=== PATIENT | female | born 1945 | race Caucasian/White ===

== ENCOUNTER 2017-10-17 12:19 | Inpatient (IN) ==
--- NOTE | 2017-10-17 13:12 | Emergency Department Note ---
Lower Extremity Injury HPI - General Chief Complaint: Extremity Injury, Lower Stated Complaint: left hip pain Time Seen by Provider: 10/17/17 12:31 Source: patient Mode of arrival: wheelchair Limitations: no limitations - History of Present Illness HPI Narrative: 72-year-old female in ED today [facility] urgent care referral due to left nondisplaced hip fracture. Patient states she felt 2 weeks ago at home in her front room due to slight dizziness and landed on her left hip on her hardwood floor. Patient lives alone and she was able to get in the standing position and continued to walk on her own accord. Patient states she has 10/10 pain when walking, and when laying still 0-10 pain. Patient states most the pain is in her groin area of her left leg. Patient again on elliptical machine and stated she felt alleviated pain after use of machine. Patient states last 3-4 days the pain has become increasingly worse. Patient broke her left hand one day before the hip injury, and this has made it more difficult to ambulate because she is unable to use a cane with her left hand. Patient has history of hypertension, thyroidism, eye problems. Patient has not had anything to eat or drink since last evening at 2130, when she took her medications. complaint: hip injury (left) Onset (ago): week(s) (2) Injury: Left: hip Type of Injury: blunt Place: home Severity: severe (with movement) Severity scale (1-10): 10 Improves with: immobilization Worsens with: weight bearing, movement Context: fall Associated symptoms: Reports: ambulatory Other symptoms: none Treatments prior to arrival: NSAIDS - Related Data Home Medications Medication Instructions Recorded Confirmed Bisoprolol/Hctz 2.5 [Ziac 2.5] 1 tab PO DAILY 10/17/17 10/17/17 Cholecalciferol (Vitamin D3) 1,000 unit PO QDAY 10/17/17 10/17/17 [Vitamin D] Levothyroxine [Synthroid] 25 mcg PO DAILY 10/17/17 10/17/17 Omeprazole [PriLOSEC] 20 mg PO QDAY 10/17/17 10/17/17 Allergies Allergy/AdvReac Type Severity Reaction Status Date / Time Ether Allergy Unknown Verified 10/17/17 12:26 hydrocodone Allergy Unknown Verified 10/17/17 12:26 tolmetin [From Tolectin] Allergy Unknown Verified 10/17/17 12:26 Review of Systems Constitutional: Denies: fever, chills, weakness Eyes: Denies: eye pain ENT ED: Denies: ear pain, throat pain, congestion Cardiovascular: Denies: chest pain, palpitations, edema, syncope Respiratory: Denies: shortness of breath, cough, wheezes Gastrointestinal: Denies: abdominal pain, nausea, vomiting, diarrhea Genitourinary: Denies: dysuria, urgency, frequency Musculoskeletal: Reports: joint pain (left joint pain patient states feels like pulled groin). Denies: back pain, joint swelling Integumentary: Denies: rash, pruritus Neurological: Reports: abnormal gait (patient uses IV pole to steady gait and not bear weight on left leg when moving.). Denies: headache, weakness, numbness Psychiatric: Denies: anxiety, depression Endocrine: Denies: fatigue Hematological/Lymphatic: Denies: easy bleeding, easy bruising Allergic/Immunologic: Denies: urticaria Past Medical History - Past Medical History Medical history: Reports: hypertension, hypothyroidism Psychiatric history: Reports: no psych history COUNTERSINKER history: Reports: non-contributory LMP comments: post menopausal - Social History smoking status: Never smoker Alcohol use: Reports: None Drug use: Reports: none Physical Exam Limitations: no limitations General appearance: alert, in no apparent distress Head: atraumatic, normocephalic, normal inspection Eye: Present: normal appearance, PERRL ENT: normal exam, normal oropharynx, mucous membranes moist, normal external ear exam Neck: Present: normal inspection, full ROM. Absent: tenderness, lymphadenopathy Chest: Present: normal inspection, symmetric chest wall rise. Absent: tenderness Respiratory: Present: normal lung sounds bilaterally. Absent: respiratory distress, wheezes Cardiovascular: Present: regular rate, normal rhythm, normal heart sounds. Absent: systolic murmur, diastolic murmur Abdominal: Present: soft, normal bowel sounds. Absent: distention, tenderness, guarding, organomegaly Extremities: Present: normal inspection, normal capillary refill. Absent: tenderness, pedal edema Hip/Pelvis: Present: ecchymosis. Absent: full ROM (left limited), tenderness, swelling, external rotation, internal rotation, shortening Upper leg: Present: normal inspection. Absent: swelling, ecchymosis, erythema Knee: Present: normal inspection, full ROM. Absent: tenderness, deformity Lower leg: Present: normal inspection. Absent: tenderness, swelling, ecchymosis , deformity Gait: observed and limited by pain, unable to bear weight Back: Present: normal inspection. Absent: tenderness, CVA tenderness (R), CVA tenderness (L) Neurological: Present: alert, oriented X3, normal gait Psychiatric: Present: normal affect, normal mood. Absent: depressed, agitated Skin: Present: warm, dry, intact, normal color. Absent: rash, cyanosis Course Vital Signs Temperature 98.7 F 10/17/17 12:20 Respiratory Rate 87 H 10/17/17 12:20 Blood Pressure 165/88 10/17/17 12:20 Pulse Oximetry (%) 99 10/17/17 12:20 Temperature 98.7 F 10/17/17 12:20 Pulse Rate 52 L 10/17/17 14:16 Respiratory Rate 11 L 10/17/17 14:42 Blood Pressure 159/86 10/17/17 14:42 Pulse Oximetry (%) 97 10/17/17 14:16 Extremity Injury, Lower - MDM Narrative Medical decision making narrative: [address] Sheldon on patient's subcapital nondisplaced left hip fracture. Dr. Sheldon will be in to do surgical repair, will contact hospitalist to begin admitting process. - Lab Data Result diagrams: 10/17/17 12:50 10/17/17 12:50 Lab Results 10/17/17 10/17/17 10/17/17 Range/Units 12:50 12:50 12:50 WBC 10.8 (4.5-11.0) K/mcL RBC 5.21 H (4.00-5.20) M/mcL Hgb 15.3 H (12.0-15.0) g/dL Hct 46.4 (36.0-48.0) % MCV 88.9 (80.0-100.0) fL MCH 29.4 (26.0-34.0) pg MCHC 33.0 (31.0-36.0) g/dL RDW 14.4 (11.5-14.5) % Plt Count 298 (140-440) K/mcL MPV 9.2 (7.4-10.4) fL Gran % 66.2 (38.0-78.0) % Lymph % (Auto) 25.6 (15.5-49.0) % [place] % (Auto) 6.4 (1.0-12.0) % Eos % (Auto) 1.2 (0.0-7.0) % Baso % (Auto) 0.6 (0.0-2.0) % Gran # 7.2 (1.8-8.0) K/mcL Lymph # (Auto) 2.8 (1.5-4.8) K/mcL [place] # (Auto) 0.7 (0.1-0.9) K/mcL Eos # (Auto) 0.1 (0.0-0.7) K/mcL Baso # (Auto) 0.1 (0.0-0.3) K/mcL PT 12.2 (11.9-14.5) sec INR 0.9 (0.9-1.1) Sodium 139 (133-145) mmol/L Potassium 3.8 (3.3-5.1) mmol/L Chloride 101 (96-108) mmol/L Carbon Dioxide 22 (22-30) mmol/L Anion Gap 16.0 (8-16) BUN 15 (8-23) mg/dl Creatinine 0.7 (0.6-1.1) mg/dl GFR Calculation 87 Glucose 92 (70-105) mg/dL Calcium 9.8 (8.6-10.4) mg/dl Total Bilirubin 0.4 (0.0-1.0) mg/dL AST 22 (0-37) U/l ALT 18 (0-40) U/l Alkaline Phosphatase 108 (39-117) U/L Total Protein 8.1 (5.9-8.4) gm/dL Albumin 4.5 (3.2-5.2) gm/dL Globulin 3.6 (2.2-3.7) gm/dL Albumin/Globulin Ratio 1.3 (1.0-2.3) Urine Color Urine Appearance Urine pH (5.0-9.0) Ur Specific [place] (1.000-1.035) Urine Protein (NEG) mg/dL Urine Glucose (UA) (NEG) mg/dL Urine Ketones (NEG) mg/dL Urine Occult Blood (<0.03) mg/dL Urine Nitrate (NEG) Urine Bilirubin (NEG) mg/dL Urine Urobilinogen (NEG) mg/dL Ur Leukocyte Esterase (NEG) /uL Urine RBC (0-1) /hpf Urine WBC (0-4) /hpf Ur Squamous Epith Cells (0-4) /hpf Amorphous Crystals (0) /hpf Urine Bacteria (0) /hpf Urine Mucus (0) /hpf Ur Culture Indicated? 10/17/17 Range/Units 13:06 WBC (4.5-11.0) K/mcL RBC (4.00-5.20) M/mcL Hgb (12.0-15.0) g/dL Hct (36.0-48.0) % MCV (80.0-100.0) fL MCH (26.0-34.0) pg MCHC (31.0-36.0) g/dL RDW (11.5-14.5) % Plt Count (140-440) K/mcL MPV (7.4-10.4) fL Gran % (38.0-78.0) % Lymph % (Auto) (15.5-49.0) % [place] % (Auto) (1.0-12.0) % Eos % (Auto) (0.0-7.0) % Baso % (Auto) (0.0-2.0) % Gran # (1.8-8.0) K/mcL Lymph # (Auto) (1.5-4.8) K/mcL [place] # (Auto) (0.1-0.9) K/mcL Eos # (Auto) (0.0-0.7) K/mcL Baso # (Auto) (0.0-0.3) K/mcL PT (11.9-14.5) sec INR (0.9-1.1) Sodium (133-145) mmol/L Potassium (3.3-5.1) mmol/L Chloride (96-108) mmol/L Carbon Dioxide (22-30) mmol/L Anion Gap (8-16) BUN (8-23) mg/dl Creatinine (0.6-1.1) mg/dl GFR Calculation Glucose (70-105) mg/dL Calcium (8.6-10.4) mg/dl Total Bilirubin (0.0-1.0) mg/dL AST (0-37) U/l ALT (0-40) U/l Alkaline Phosphatase (39-117) U/L Total Protein (5.9-8.4) gm/dL Albumin (3.2-5.2) gm/dL Globulin (2.2-3.7) gm/dL Albumin/Globulin Ratio (1.0-2.3) Urine Color Yellow Urine Appearance Clear Urine pH 5.0 (5.0-9.0) Ur Specific [place] 1.014 (1.000-1.035) Urine Protein Neg (NEG) mg/dL Urine Glucose (UA) Negative (NEG) mg/dL Urine Ketones 5/tr A (NEG) mg/dL Urine Occult Blood Neg (<0.03) mg/dL Urine Nitrate Neg (NEG) Urine Bilirubin Neg (NEG) mg/dL Urine Urobilinogen Neg (NEG) mg/dL Ur Leukocyte Esterase Neg (NEG) /uL Urine RBC 0 (0-1) /hpf Urine WBC 1 (0-4) /hpf Ur Squamous Epith Cells 1 (0-4) /hpf Amorphous Crystals Few A (0) /hpf Urine Bacteria 0 (0) /hpf Urine Mucus Few (0) /hpf Ur Culture Indicated? No - Radiology Data Radiology results reviewed: Yes I reviewed the patient's radiology results. - EKG Data EKG attestation: Yes I reviewed and interpreted this EKG. 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
[2017-10-17 13:13] LABS: Basophils # (Auto) 0.1 K/mcL (0.0-0.3); Basophils % (Auto) 0.6 % (0.0-2.0); Eosinophils # (Auto) 0.1 K/mcL (0.0-0.7); Eosinophils % (Auto) 1.2 % (0.0-7.0); Granulocytes % (Auto) 66.2 % (38.0-78.0); Lymphocytes # (Auto) 2.8 K/mcL (1.5-4.8); Lymphocytes % (Auto) 25.6 % (15.5-49.0); Mean Cell Volume 88.9 fL (80.0-100.0); Mean Corpuscular Hemoglobin 29.4 pg (26.0-34.0); Monocytes # (Auto) 0.7 K/mcL (0.1-0.9); Monocytes % (Auto) 6.4 % (1.0-12.0); Platelet Count 298 K/mcL (140-440); RBC 5.21 M/mcL (4.00-5.20); Red Cell Distribution Width 14.4 % (11.5-14.5)
[2017-10-17 13:30] LABS: ALT/SGPT 18 U/l (0-40); Albumin 4.5 gm/dL (3.2-5.2); Albumin/Globulin Ratio 1.3 (1.0-2.3); Alkaline Phosphatase 108 U/L (39-117); Blood Urea Nitrogen 15 mg/dl (8-23)
[2017-10-17 13:41] LABS: Appearance,Urine CLEAR; Bacteria,Urine 0 /hpf (0); Bilirubin,Urine NEG (NEG); Color,Urine YELLOW; Glucose,Urine (UA) NEGATIVE (NEG); Leukocyte Esterase,Urine NEG /uL (NEG); Mucus,Urine FEW /hpf (0); Protein,Urine NEG (NEG); Specific Gravity,Urine 1.014 (1.000-1.035); Urine Amorphous Crystals FEW /hpf (0); Urine Blood NEG mg/dL (<0.03); Urine RBC 0 /hpf (0-1); Urine Squamous Epithelial Cell 1 /hpf (0-4); Urine WBC 1 /hpf (0-4); Urobilinogen,Urine NEG (NEG)
--- NOTE | 2017-10-17 14:09 | XRay Report ---
CLINICAL INFORMATION: Trauma COMPARISON: None. FINDINGS: The heart is mildly enlarged. The mediastinum and pulmonary vessels are unremarkable. The lungs are clear. There are no effusions. The bones and soft tissues are within normal limits. IMPRESSION: Mild cardiomegaly - no acute disease or posttraumatic change. Interpreted and Authenticated by: Sterling Shaver 10/17/17
--- NOTE | 2017-10-17 14:50 | XRay Report ---
CLINICAL INFORMATION: Trauma COMPARISON: None. FINDINGS: Acute subcapital fracture left hip is appreciated. The femoral head is impacted and displaced laterally less than 1 cm. No other osseous abnormalities. Both hips are normal in width alignment without arthritic change. SI joints show mild degeneration. IMPRESSION: Mildly impacted, minimally displaced acute subcapital fracture - left hip Interpreted and Authenticated by: Sterling Shaver 10/17/17
[2017-10-17] MEDS ORDERED: ONDANSETRON 4 MG/2 ML VIAL IV PRN ×2 (15:39→18:53)
[2017-10-17] MEDS ORDERED: BISACODYL 10 MG SUPP.RECT PR PRN ×2 (15:39→18:53)
[2017-10-17] MEDS ORDERED: ACETAMINOPHEN 325 MG TABLET PO PRN ×2 (15:39→18:53)
--- NOTE | 2017-10-17 16:00 | History and Physical Report ---
DATE OF ADMISSION: 10/17/2017 PRIMARY CARE PROVIDER: Dr. Jones. CHIEF COMPLAINT: Left hip pain. HISTORY OF PRESENT ILLNESS: A 72-year-old female who reports falling about 2 weeks ago. She got up, felt dizzy, fell on her left hip and had pain. She thought she pulled a muscle. She was able to bear weight, although painfully. Again, she has been walking on it for a couple of weeks. A week ago she tripped and hurt her wrist. She went in to urgent care and had an x-ray. They could not see anything definitive. She was told to follow up with primary care within a week. She could not get in for a couple weeks. After about a week, her wrist continued to bother her and her left hip was bothering her more, so she went in to the ER. She was found to have a left hip fracture. She denies any numbness or tingling in that leg. No chest pain or shortness of breath. Dr. Sheldon was contacted from the ER who will perform surgery. REVIEW OF SYSTEMS: Positive for left hip pain and left wrist pain. Negative for headache, fever, chills, nausea, vomiting, chest pain, coughing, wheezing, shortness of breath, stomach pain, diarrhea, constipation. The remainder of a ten-point review of system is negative. PAST MEDICAL HISTORY: Hypertension, hypothyroidism, GERD. PAST SURGICAL HISTORY: Cholecystectomy, eye surgery for cataracts, tonsillectomy, hysterectomy. FAMILY HISTORY: Mother had heart disease. She did not know her father's medical history. SOCIAL HISTORY: The patient denies tobacco or alcohol. Ambulates independently, lives at home by herself. ALLERGIES: 1. ETHER. 2. HYDROCODONE. 3. TOLMETIN. HOME MEDICATIONS: 1. Bisoprolol. 2. Hydrochlorothiazide tablet. 3. Vitamin D3. 4. Levothyroxine. 5. Prilosec. PHYSICAL EXAMINATION: VITAL SIGNS: Pulse 55, respirations 19, blood pressure 132/110, oxygen 97%. GENERAL: The patient is alert and awake, in no acute distress. HEENT: Normocephalic, atraumatic. Extraocular movements intact. Pupils equal and reactive to light. CARDIOVASCULAR: Regular rhythm. No murmurs, rubs, or gallops. PULMONARY: Clear to auscultation bilaterally. No wheeze, rhonchi or rales. ABDOMEN: Soft, nontender, nondistended, positive bowel sounds x4. EXTREMITIES: No clubbing, cyanosis or edema. NEUROLOGIC: Cranial nerves II-XII are grossly intact. Sensations are intact bilateral lower. Symmetrical director internal communications strength to the fingers that she is able to flex. Unable to assess lower extremity strength given the fracture on the left. SKIN: Warm and dry. LABORATORY DATA: WBC is 10, hemoglobin 15. INR 0.9. Sodium 139, BUN 15, creatinine 0.7. Imaging shows a left hip fracture. ASSESSMENT: 1. Left hip fracture status post ground-level fall. 2. Hypertension. 3. Hypothyroidism. 4. GERD. PLAN: The patient monitored in med/surg with n.p.o. at this time. Dr. Sheldon for ORIF. DVT prophylaxis, SCDs postop per Ortho. Continue home blood pressure and thyroid medications. PT, OT, medical case worker for assistance. HARRY:brian Job ID: [id number] Doc ID: [id number] Fernando Maciel DO
[2017-10-17] MEDS ORDERED: KETAMINE 100 MG/ML ML IV ONE (16:35)
[2017-10-17] MEDS ORDERED: DEXAMETHASONE 10 MG/ML VIAL IV ONE (16:35)
[2017-10-17] MEDS ORDERED: ONDANSETRON 4 MG/2 ML VIAL IV ONE (16:35)
[2017-10-17] MEDS ORDERED: ePHEDrine 50 MG/ML AMPUL IV ONE (16:35)
[2017-10-17] MEDS ORDERED: LIDOCAINE HCL/PF 100 MG/5 ML SYRINGE IV ONE (16:35)
[2017-10-17] MEDS ORDERED: PHENYLEPHRINE 10 MG/ML VIAL IV ONE (16:35)
[2017-10-17] MEDS ORDERED: MIDAZOLAM 2 MG/2 ML VIAL IV ONE (16:35)
[2017-10-17] MEDS ORDERED: PROPOFOL 200 MG/20 ML VIAL IV ONE (16:35)
[2017-10-17] MEDS ORDERED: GLYCOPYRROLATE 0.2 MG/ML VIAL IV ONE (16:35)
--- NOTE | 2017-10-17 16:47 | Consultation ---
DATE OF CONSULTATION: 10/17/2017 REASON FOR CONSULTATION: Left femoral neck fracture consulted by [facility] ER provider HISTORY OF PRESENT ILLNESS: The patient is a 72-year-old female who resides by herself who fell 11 days ago onto her left side. She had pain in the groin region at that time. However, was able to ambulate but pain worsened over the course of the 11 days to the point where she is unable to walk other than with a walker with minimal weight. She reports that she felt dizzy at the time resulting in the fall. She feels this was from a medication she was taking over the counter. She has stopped this since with no recurrent episodes. PAST MEDICAL HISTORY: Significant for hypertension, hyperthyroidism and reflux. PAST SURGICAL HISTORY: Cholecystectomy, cataract surgery, tonsillectomy, hysterectomy. ALLERGIES: 1. ETHER. 2. HYDROCODONE which causes nausea. 3. TOLMETIN. FAMILY HISTORY: Significant for heart disease; however, no history of coagulopathy. SOCIAL HISTORY: She resides by herself. Denies any tobacco or alcohol use. MEDICATIONS: 1. Hydrochlorothiazide. 2. Vitamin D. 3. Levothyroxine. 4. Prilosec. 5. Bisoprolol. REVIEW OF SYSTEMS: Significant for wrist and left hip pain, otherwise denies any chest pain or shortness of breath. No change in vision. No episodes of repeat dizziness as initially noted. No ringing in the ears. No nausea, vomiting, diarrhea, or constipation. No abnormal abdominal pain. PHYSICAL EXAMINATION: GENERAL: The patient is a well-developed, well-nourished, alert and oriented, appropriate female in nonacute distress, resting in her bed. EXTREMITIES: Examination of her left lower extremity reveals that she has a slightly shortened limb compared to the contralateral side. However, her skin is intact. She has ecchymosis about her posterior hip. Pain with any motion which is primarily deferred at the hip secondary to known fracture. She is neurovascularly intact distally. DIAGNOSTIC STUDIES: She has an x-ray of her pelvis and left hip which demonstrates a valgus impacted subcapital femoral neck fracture. She had a CT prior demonstrating the same which demonstrates displacement of the fracture as well. Her INR is 0.9. Hemoglobin is 15 and normal white count. Her serum creatinine is 0.7. ASSESSMENT AND PLAN: A 72-year-old female with a left femoral neck fracture that is displaced. I discussed the diagnosis with her as well as treatment options, recommendation for operative treatment with hemiarthroplasty being an option. I discussed the postoperative course of this as well as the goal of surgery would be to improve her pain as well as ambulatory. She understands. I discussed the risks of the surgery include risk of anesthesia, pulmonary and cardiac risks, risk of blood clots, infections, bleeding, hip dislocations. She is well aware and she wished to proceed in this fashion. DLW:brian Job ID: [id number] Doc ID: [id number] Kinjal Sheldon MD MTDD
[2017-10-17] MEDS ORDERED: METHOCARBAMOL 1,000 MG/10 ML VIAL IV PRN (18:41)
[2017-10-17] MEDS ORDERED: FLUMAZENIL 0.1 MG/ML ML IV PRN (18:41)
[2017-10-17] MEDS ORDERED: IPRATROPIUM/ALBUTEROL 3 ML AMPUL.NEB NEB PRN (18:41)
[2017-10-17] MEDS ORDERED: LACTATED RINGERS 250 ML IV PRN (18:41)
[2017-10-17] MEDS ORDERED: NALOXONE HCL 0.4 MG/ML VIAL IV PRN (18:41)
[2017-10-17] MEDS ORDERED: fentaNYL 100 MCG/2 ML VIAL IV PRN (18:41)
[2017-10-17] MEDS ORDERED: BENZOCAINE/MENTHOL 1 LOZENGE PO PRN ×2 (18:41→18:53)
[2017-10-17] MEDS ORDERED: ACETAMINOPHEN 1,000 MG/100 ML BOTTLE IV ONE (18:41)
[2017-10-17] MEDS ORDERED: MEPERIDINE 25 MG/ML SYRINGE IV PRN (18:41)
[2017-10-17] MEDS ORDERED: LACTATED RINGERS 1,000 ML IV SCH (18:45)
[2017-10-17] MEDS ORDERED: POLYETHYLENE GLYCOL 3350 17 GM PACKET PO PRN (18:53)
[2017-10-17] MEDS ORDERED: MAGNESIUM HYDROXIDE 30 ML ORAL.SUSP PO PRN (18:53)
[2017-10-17] MEDS ORDERED: FLEETS ADULT ENEMA PR PRN (18:53)
--- NOTE | 2017-10-17 19:06 | Internal Med Progress Note ---
Medical - PN: Subj Patient information: Note initiated : 10/17/17 at 7:05 pm Service Date, if different from initiated Date: [] Patient: Libertad Varela 72 y/o F admitted on 10/17/17 for left hip pain. Chief Complaint: [left hip FX] - Constitutional Vitals: Vital Signs Temp Pulse Resp BP Pulse Ox 97.3 F 66 15 89/53 98 10/17/17 18:55 10/17/17 18:55 10/17/17 18:55 10/17/17 18:55 10/17/17 18:55 Period Temp Pulse Resp BP Sys/Weldon Pulse Ox Last 24 Hr 97.3 F-98.7 F 50-89 9-20 89-165/53-110 97-100 Intake and Output 10/17/17 10/17/17 10/17/17 05:59 13:59 21:59 Intake Total 1600 / 1600 Output Total 200 / 200 Balance 1400 / 1400 Weight 168 lb 164 lb 9 oz Patient Weight 10/18/17 05:59 Weight 164 lb 9 oz Intake & Output: Intake & Output 10/17/17 10/17/17 10/17/17 05:59 13:59 21:59 Intake Total 1600 / 1600 Output Total 200 / 200 Balance 1400 / 1400 Weight 168 lb 164 lb 9 oz Intake: IV - Manual Only 1600 / 1600 Output: Estimated Blood Loss 200 / 200 Other: # Voids 1 Medical - PN: Obj Da - Labs CBC & Chem 7: 10/17/17 12:50 10/17/17 12:50 Labs: Abnormal Lab Results 10/17/17 10/17/17 13:06 12:50 RBC 5.21 H Hgb 15.3 H Urine Ketones 5/tr A Amorphous Crystals Few A Meds: Medications Acetaminophen (Tylenol) 650 mg PO Q6HP PRN PRN Reason: PAIN/FEVER > 101 Acetaminophen (Tylenol) 650 mg PO Q6HP PRN PRN Reason: PAIN/FEVER > 101 Albuterol/Ipratropium (Duoneb) 3 ml NEB ONCE PRN PRN Reason: Wheezing Stop: 10/17/17 20:41 Bisacodyl (Dulcolax) 10 mg MA Q2-3DAYS PRN PRN Reason: Constipation Bisacodyl (Dulcolax) 10 mg MA Q2-3DAYS PRN PRN Reason: Constipation Bisoprolol Fumarate (Zebeta) 10 mg PO DAILY [facility] Cefazolin Sodium (Ancef) 2 gm IV Q8H LEATHA Stop: 10/18/17 03:01 Docusate Sodium (Colace) 100 mg PO BID [facility] Docusate Sodium (Colace) 100 mg PO BID [facility] Enoxaparin Sodium (Lovenox) 40 mg SQ DAILY [facility] Fentanyl (Sublimaze) 25 mcg IV Q2M PRN PRN Reason: Pain Stop: 10/17/17 20:41 Flumazenil (Romazicon) 0.1 mg IV Q2MIN PRN PRN Reason: BENZODIAZEPINE REVERSAL Stop: 10/17/17 20:42 Hydrochlorothiazide (Oretic) 6.25 mg PO DAILY [facility] Lactated Ringer's (Lactated Ringers) 250 mls @ 0 mls/hr IV PRN PRN PRN Reason: Hypovolemia Stop: 10/17/17 20:41 Lactated Ringer's (Lactated Ringers) 1,000 mls @ 20 mls/hr IV .Q24H LEATHA Stop: 10/17/17 20:41 Acetaminophen (Ofirmev) 1,000 mg in 100 mls @ 200 mls/hr IV ONCE ONE Stop: 10/17/17 19:10 Levothyroxine Sodium (Synthroid) 25 mcg PO ACB [facility] Magnesium Hydroxide (Milk Of Magnesia) 30 ml PO BIDP PRN PRN Reason: Constipation Meperidine HCl (Demerol) 12.5 mg IV Q5M PRN PRN Reason: Shivering Stop: 10/17/17 20:42 Methocarbamol (Robaxin) 750 mg IV ONCE PRN PRN Reason: Muscle Spasm Stop: 10/17/17 20:42 Morphine Sulfate (Morphine) 0 mg IV Q1HP PRN PRN Reason: PAIN LEVEL > 6 Naloxone HCl (Narcan) 0.1 mg IV Q2MIN PRN PRN Reason: Opiate Reversal Stop: 10/17/17 20:41 Omeprazole (Prilosec) 20 mg PO ACB [facility] Ondansetron HCl (Zofran) 4 mg IV Q6HP PRN PRN Reason: Nausea And Vomiting Ondansetron HCl (Zofran) 4 mg IV Q4HP PRN PRN Reason: Nausea And Vomiting Polyethylene Glycol (Miralax) 17 gm PO DAILYP PRN PRN Reason: Constipation Senna (Senokot) 2 tab PO HS LEATHA Sodium Biphosphate/Sodium Phosphate (Fleets Adult) 1 dose MA Q3-4DAYS PRN PRN Reason: Constipation Sodium Chloride (Saline Flush) 10 ml IV Q8 LEAT[facility] Throat Lozenges (Cepacol) 1 lozenge PO PRN PRN PRN Reason: Sore Throat Stop: 10/17/17 20:42 Throat Lozenges (Cepacol) 1 lozenge PO PRN PRN PRN Reason: Sore Throat Medical - PN: A/P - Time Spent With Patient Total time spent is greater than 50% in coordination of care (as documented) at patient's floor/unit and/or counseling patient: - Narrative A/P Narrative: A: *Left hip Fx: *HTN *Hypothyroid P: -Ortho following -pain control -pt/ot -CM -ppx: scd, post-op per ortho / home ppi
--- NOTE | 2017-10-17 19:21 | Orthopedic Procedure Note ---
Date of procedure: Note initiated : 10/17/17 at 7:18 pm Service Date, if different from initiated Date: [10/17/2017] Pre-op diagnosis: left hip fracture Post-op diagnosis: same Procedure: left hip dexter-arthroplasty Findings: displaced femoral neck fracture Grafts/Implants: actis duofix hip prostesis cementless size 5, +0 mm tapered spacer, 45mm fracture head hip ball Anesthesia: GETA Surgeon: Kinjal Sheldon [employer] Agent: Micky Lozada Estimated blood loss: 200 Pathology: none sent Condition: stable Disposition: PACU
[2017-10-17] MEDS ORDERED: TRANEXAMIC ACID 1,000 MG/10 ML VIAL IV ONE (19:33)
[2017-10-17] MEDS: SENNOSIDES 1 TABLET PO SCH (22:20)
[2017-10-17] MEDS: DOCUSATE SODIUM 100 MG CAPSULE PO SCH ×2 (22:20)
[2017-10-17] MEDS: oxyCODONE/APAP 5/325MG TABLET PO PRN (23:30)
[2017-10-17] MEDS: 0.9 % SODIUM CHLORIDE 10 ML SYRINGE IV SCH (23:37)
[2017-10-18] MEDS: ceFAZolin 1 GM VIAL IV SCH ×2 (01:05→08:41)
[2017-10-18] MEDS: ACETAMINOPHEN 1,000 MG/100 ML BOTTLE IV SCH ×4 (02:49→22:19)
[2017-10-18] MEDS: oxyCODONE/APAP 5/325MG TABLET PO PRN (04:10)
[2017-10-18] MEDS: 0.9 % SODIUM CHLORIDE 10 ML SYRINGE IV SCH ×3 (05:45→22:19)
--- NOTE | 2017-10-18 06:34 | XRay Report ---
CLINICAL INFORMATION: Left subcapital fracture COMPARISON: Preoperative x-ray 2017 1434 hours FINDINGS: Left hemiarthroplasty component is anatomically aligned. No osseous abnormality. Right hip is normal in width and alignment without arthritic change. Mild degenerative change seen in the SI joints. Soft tissue swelling over the surgical site. IMPRESSION: Negative Interpreted and Authenticated by: Sterling Shaver 10/18/17
[2017-10-18] MEDS: LEVOTHYROXINE 25 MCG TABLET PO SCH (07:00)
[2017-10-18] MEDS: oxyCODONE HCL 5 MG TABLET PO PRN ×5 (07:00→21:40)
[2017-10-18] MEDS: OMEPRAZOLE 20 MG CAPSULE PO SCH (07:00)
--- NOTE | 2017-10-18 07:48 | Emergency Department Note ---
ED Note Addendum Note Addendum: I discussed this case with the mid-level provider and agree with the assessment and plan.
--- NOTE | 2017-10-18 08:01 | Internal Med Progress Note ---
Medical - PN: Subj Patient information: Note initiated : 10/18/17 at 7:59 am Service Date, if different from initiated Date: [] Patient: Libertad Varela 72 y/o F admitted on 10/17/17 for left hip pain. Chief Complaint: [] Interval history: hip pain after ambulating, otherwise relatively controlled. Review of Systems: denies headache/fever/chills/nausea/vomiting/chest or abdominal pain/cough/ dyspnea/diarrhea. Otherwise see above. - Constitutional Vitals: Vital Signs Temp Pulse Resp BP Pulse Ox 98.6 F 89 18 119/74 98 10/18/17 07:43 10/18/17 03:53 10/18/17 07:43 10/18/17 07:43 10/18/17 07:43 Period Temp Pulse Resp BP Sys/Weldon Pulse Ox Last 24 Hr 97.0 F-98.7 F 50-90 9-24 89-165/53-110 92-100 Intake and Output 10/17/17 10/18/17 10/18/17 21:59 05:59 13:59 Intake Total 1850 / 1850 Output Total 200 / 200 Balance 1650 / 1650 Weight 168 lb 3.2 oz Intake & Output: Intake & Output 10/17/17 10/18/17 10/18/17 21:59 05:59 13:59 Intake Total 1850 / 1850 Output Total 200 / 200 Balance 1650 / 1650 Weight 168 lb 3.2 oz Intake: IV 100 / 100 IV - Manual Only 1750 / 1750 Output: Estimated Blood Loss 200 / 200 Other: Urine Appearance Straight Clear Urine Color Straight Pale # Voids 1 1 Exam: General: Alert, Awake, No acute Distress HEENT: EOMI, CV: RRR, No murmurs Pulm: Clear b/l, no wheezing/rhonchi/rales Abd: soft, nontender, +BS x4 Ext: no clubbing/cyanosis/edema Neuro: Alert, no focal deficits, moves all extremities Skin: warm/dry Medical - PN: Obj Da - Labs CBC & Chem 7: 10/18/17 06:51 10/17/17 12:50 Labs: Abnormal Lab Results 10/17/17 10/17/17 13:06 12:50 RBC 5.21 H Hgb 15.3 H Urine Ketones 5/tr A Amorphous Crystals Few A Meds: Medications Bisacodyl (Dulcolax) 10 mg KS Q2-3DAYS PRN PRN Reason: Constipation Bisacodyl (Dulcolax) 10 mg KS Q2-3DAYS PRN PRN Reason: Constipation Bisoprolol Fumarate (Zebeta) 10 mg PO DAILY [facility] Cefazolin Sodium (Ancef) 2 gm IV Q8H [facility] Stop: 10/18/17 08:01 Last Admin: 10/18/17 01:05 Dose: 2 gm Docusate Sodium (Colace) 100 mg PO BID [facility] Last Admin: 10/17/17 22:20 Dose: Not Given Docusate Sodium (Colace) 100 mg PO BID [facility] Last Admin: 10/17/17 22:20 Dose: Not Given Enoxaparin Sodium (Lovenox) 40 mg SQ DAILY [facility] Hydrochlorothiazide (Oretic) 6.25 mg PO DAILY [facility] Acetaminophen (Ofirmev) 1,000 mg in 100 mls @ 200 mls/hr IV Q8 [facility] Last Admin: 10/18/17 05:44 Dose: Not Given Levothyroxine Sodium (Synthroid) 25 mcg PO ACB [facility] Last Admin: 10/18/17 07:00 Dose: 25 mcg Magnesium Hydroxide (Milk Of Magnesia) 30 ml PO BIDP PRN PRN Reason: Constipation Morphine Sulfate (Morphine) 0 mg IV Q1HP PRN PRN Reason: PAIN LEVEL > 6 Last Admin: 10/18/17 00:51 Dose: 2 mg Omeprazole (Prilosec) 20 mg PO ACB [facility] Last Admin: 10/18/17 07:00 Dose: 20 mg Ondansetron HCl (Zofran) 4 mg IV Q6HP PRN PRN Reason: Nausea And Vomiting Last Admin: 10/17/17 23:35 Dose: 4 mg Ondansetron HCl (Zofran) 4 mg IV Q4HP PRN PRN Reason: Nausea And Vomiting Oxycodone HCl (Roxicodone) 5 - 10 mg PO Q4-6HP PRN PRN Reason: Pain Last Admin: 10/18/17 07:00 Dose: 5 mg Polyethylene Glycol (Miralax) 17 gm PO DAILYP PRN PRN Reason: Constipation Senna (Senokot) 2 tab PO [facility] Last Admin: 10/17/17 22:20 Dose: Not Given Sodium Biphosphate/Sodium Phosphate (Fleets Adult) 1 dose KS Q3-4DAYS PRN PRN Reason: Constipation Sodium Chloride (Saline Flush) 10 ml IV Q8 [facility] Last Admin: 10/18/17 05:45 Dose: Not Given Throat Lozenges (Cepacol) 1 lozenge PO PRN PRN PRN Reason: Sore Throat Last Admin: 10/18/17 01:05 Dose: 1 lozenge Medical - PN: A/P - Time Spent With Patient Total time spent is greater than 50% in coordination of care (as documented) at patient's floor/unit and/or counseling patient: - Narrative A/P Narrative: A: *Left hip Fx: s/p ORIF (10/17) *HTN *Hypothyroid P: -Ortho following -pain control -pt/ot, CM for placement -ppx: scd, post-op per ortho lovenox / home ppi
[2017-10-18] MEDS: ENOXAPARIN 40 MG/0.4 ML SYRINGE SQ SCH (08:41)
[2017-10-18] MEDS: DOCUSATE SODIUM 100 MG CAPSULE PO SCH ×4 (08:41→20:48)
[2017-10-18] MEDS: HYDROCHLOROTHIAZIDE 25 MG TABLET PO SCH (08:41)
[2017-10-18] MEDS: BISOPROLOL 5 MG TABLET PO SCH (08:42)
[2017-10-18] MEDS ORDERED: BISOPROLOL/HCTZ 2.5 1 TAB TABLET PO SCH (09:00)
--- NOTE | 2017-10-18 09:09 | Operative Note ---
DATE OF OPERATION: 10/17/2017 PREOPERATIVE DIAGNOSIS: Left displaced femoral neck fracture. POSTOPERATIVE DIAGNOSIS: Left displaced femoral neck fracture. PROCEDURE PERFORMED: Left hip dexter-arthroplasty. SURGEON: Kinjal Sheldon M.D. BILINGUAL ACCOUNT MANAGER: Micky Lozada PA-C. ANESTHESIA: [facility] Anesthesia, general, spinal IV FLUIDS: 1300 mL lactated Ringer's. IV ANTIBIOTICS: 2 grams Ancef. ESTIMATED BLOOD LOSS: 200 mL. IMPLANTS: DePuy Actis Duofix hip prosthesis cementless size 5 with a collar and a 45 mm fracture head hip ball with a +0 mm taper. Standard off-set neck. PATHOLOGY/LAB: None. OPERATIVE FINDINGS: A displaced femoral neck fracture at the subcapital region. INTRAOPERATIVE COMPLICATIONS: None apparent. TOURNIQUET TIME: Not applicable. INDICATION FOR PROCEDURE: The patient is a 72-year-old female who has a displaced left femoral neck fracture that occurred over a week ago and has become nonambulatory and increasing in pain. Discussed treatment options with her to include operative versus nonoperative with recommendation for operative treatment to allow her to be immediate weightbearing and mobilization. I discussed the risks of surgery, and she wished to proceed in this fashion. DESCRIPTION OF PROCEDURE: The patient was prepped for surgery. The site was verified and marked with the patient's input and was taken back to the operating room where she underwent anesthesia. She was given 2 grams Ancef as well as 1000 mg of tranexamic acid. She was placed in the lateral decubitus position with the left side up and supported with anterior and posterior bolsters. Her upper extremity was adequately padded. Her left lower extremity was then prepped and draped in the usual sterile fashion utilizing ChloraPrep. Surgical timeout was performed to verify patient identity, correct procedure being performed, correct extremity being operated on, and implants being used. Everyone was in agreement. Approximately a 10 to 12 cm incision was made over the posterior one-third of the greater trochanter and skin was sharply incised. Electrocautery was utilized to obtain hemostasis and dissect down to the tensor fascia roxanne. This was incised with a clean 15 blade along the mid to posterior aspect of it, exposing the trochanteric bursa. This bursa was incised. The muscle was split in line with the tensor fascia roxanne fibers, exposing the greater trochanter, as well as the external rotators. Electrocautery was utilized to peel off the soft tissue over the external rotators. The piriformis was identified and tagged with an Ethibond suture. A self-retaining retractor had been placed at this time. The external rotators were released off the femoral neck exposing the capsule. Capsulotomy was made in line with the femoral neck exposing the fracture itself. The inferior edges of the capsule were tagged with Ethibond suture. At this point, we measured 15 mm up from the lesser tuberosity and made our femoral neck cut with oscillating saw. This was excised. The femoral head was removed and was measured to be 45. Utilizing a 45 mm sizer into the acetabulum itself, it appeared to have good overall fit. I did excise a small portion of the ligamentum teres at the base as well. At this point, the wound was copiously irrigated with irrisept. The retractor was placed to expose the femoral shaft. Utilizing the icebox man to open up the femoral canal and then broached up to a size 5. This had a good fit with good stability demonstrated by resisted rotation of the femur. Trialed with a standard neck as well as 0 mm of offset. The hip proved to be stable as well as leg lengths were near anatomic to the contralateral side. We did trial a +5. However, this was too tight and did not allow for full extension. At this point, removed the trials and copiously irrigated the wound. Hemostasis had been obtained as well. We irrigated with Irrisept and allowed to sit in the joint for over a minute. At this point, I placed a femoral stem with a collar down to the calcar region. Again, with good fit overall. We placed our femoral ball and reduced the joint. At this point again, assessed for stability and leg legs. It was stable and leg felt to be different by a millimeter. At this point, we copiously irrigated the wound again, closed the posterior capsule with 0 Ethibond suture. Repaired the piriformis to the greater trochanter in a soft tissue manner, did not drill tunnels to the greater trochanter. The wound was again copiously irrigated. An 0 Vicryl was utilized to close the tensor fascia roxanne itself in interrupted fashion and ran it more proximally. We closed the deep fat layer with 0 Vicryl and then the subcutaneous tissue with 3-0 Vicryl and closed the skin with 3-0 nylons and then a dry dressing was placed. The patient woke from anesthesia. We placed her in a hip abduction pillow. She was transferred to PACU in stable condition. PLAN: The patient will be admitted back to the floor. She is to weightbear as tolerated with posterior hip precautions. DLW:brian Job ID: [id number] Doc ID: [id number] Kinjal GODOY
--- NOTE | 2017-10-18 19:29 | Orthopedic Progress Note ---
Subjective Patient information: Note initiated : 10/18/17 at 7:26 pm Service Date, if different from initiated Date: [] Patient: Libertad Varela 72 y/o F admitted on 10/17/17 for Left Hip Pain/Left Hip Fracture. Chief Complaint: [] Principal diagnosis: Left hip fracture Interval history: POD 1 s/p Left hip dexter arthroplasty. Overall doing well and did ambulate with walker to bathroom last night. Is painful but controlled. No new issues otherwise. Objective Vital signs: Vital Signs Temp Pulse Resp BP BP Pulse Ox 10/18/17 16:00 98.9 F 18 96/58 96 10/18/17 12:14 96.7 F L 16 119/78 95 10/18/17 07:43 98.6 F 18 119/74 98 10/18/17 03:53 97.3 F 89 18 99/63 92 10/17/17 22:45 97.3 F 76 16 137/70 99 10/17/17 21:45 69 116/69 96 10/17/17 21:15 59 L 115/70 98 10/17/17 20:45 57 L 122/73 100 10/17/17 20:30 54 L 118/72 99 10/17/17 20:15 54 L 121/67 99 10/17/17 20:01 97.8 F 61 24 H 110/64 100 10/17/17 19:45 97.7 F 69 20 119/68 100 10/17/17 19:35 97.2 F 61 17 111/62 100 Intake and Output 10/18/17 10/18/17 10/18/17 05:59 13:59 21:59 Intake Total 100 / 100 120 / 120 300 / 300 Balance 100 / 100 120 / 120 300 / 300 Intake: IV 100 / 100 100 / 100 Oral 120 / 120 200 / 200 Other: Meal Breakfast Percent of Meal Consumed 100% # Voids 1 1 1 Weight 168 lb 3.2 oz Patient Weight 10/19/17 05:59 Weight 168 lb 3.2 oz Intake & Output: Intake & Output 10/18/17 10/18/17 10/18/17 05:59 13:59 21:59 Intake Total 100 / 100 120 / 120 300 / 300 Balance 100 / 100 120 / 120 300 / 300 Weight 168 lb 3.2 oz Intake: IV 100 / 100 100 / 100 Oral 120 / 120 200 / 200 Other: Meal Breakfast Percent of Meal Consumed 100% # Voids 1 1 1 Incision: Yes clean and dry Incision clean and dry: Yes Dressing: Yes clean, Yes dry Weight bearing status: full Range of motion: hip precauations Additional Comments: sensation intact throughout lower extremity with warm well perfused foot - Labs CBC & BMP: 10/18/17 06:51 10/17/17 12:50 Labs: Orthopedic Labs 10/17/17 12:50 PT 12.2 INR 0.9 10/18/17 10/17/17 06:51 12:50 Hgb 13.3 15.3 H Hct 40.3 46.4 Assessment and Plan (1) Fracture of hip 72 y/o female POD s/p dexter hip arthroplasty for femoral neck fracture. Overall doing ok with pain as expected. -Recommend oral diet and pain control. -PT/OT for mobilization, weight bearing as tolerated -Posterior hip precautions x6 weeks -Scds/lovenox, ISS. Status: Acute
[2017-10-18] MEDS: SENNOSIDES 1 TABLET PO SCH (20:47)
[2017-10-19] MEDS: oxyCODONE HCL 5 MG TABLET PO PRN ×5 (02:18→20:55)
[2017-10-19] MEDS: 0.9 % SODIUM CHLORIDE 10 ML SYRINGE IV SCH ×3 (05:55→21:07)
[2017-10-19] MEDS: ACETAMINOPHEN 1,000 MG/100 ML BOTTLE IV SCH ×3 (05:55→20:56)
[2017-10-19] MEDS: LEVOTHYROXINE 25 MCG TABLET PO SCH (06:36)
[2017-10-19] MEDS: OMEPRAZOLE 20 MG CAPSULE PO SCH (06:36)
[2017-10-19] MEDS: DOCUSATE SODIUM 100 MG CAPSULE PO SCH ×3 (07:59→20:55)
--- NOTE | 2017-10-19 08:04 | Internal Med Progress Note ---
Medical - PN: Subj Patient information: Note initiated : 10/19/17 at 8:02 am Service Date, if different from initiated Date: [] Patient: Libertad Varela 72 y/o F admitted on 10/17/17 for Left Hip Pain/Left Hip Fracture. Chief Complaint: [] Interval history: hip pain after ambulating, otherwise relatively controlled. Otherwise see above. 10/19 no overnight events, slept well. Review of Systems: denies headache/fever/chills/nausea/vomiting/chest or abdominal pain/cough/ dyspnea/diarrhea. Otherwise see above. - Constitutional Vitals: Vital Signs Temp Pulse Resp BP Pulse Ox 98.0 F 73 20 115/69 95 10/19/17 03:50 10/19/17 03:50 10/19/17 03:50 10/19/17 03:50 10/19/17 03:50 Period Temp Pulse Resp BP Sys/Weldon Pulse Ox Last 24 Hr 96.7 F-98.9 F 73-77 16-24 92-119/48-78 94-96 Intake and Output 10/18/17 10/19/17 10/19/17 21:59 05:59 13:59 Intake Total 300 / 300 700 / 700 100 / 100 Output Total 150 / 150 100 / 100 Balance 150 / 150 600 / 600 100 / 100 Weight 167 lb 4.8 oz Intake & Output: Intake & Output 10/18/17 10/19/17 10/19/17 21:59 05:59 13:59 Intake Total 300 / 300 700 / 700 100 / 100 Output Total 150 / 150 100 / 100 Balance 150 / 150 600 / 600 100 / 100 Weight 167 lb 4.8 oz Intake: IV 100 / 100 100 / 100 100 / 100 Oral 200 / 200 600 / 600 Output: Void Amount 150 / 150 100 / 100 Other: Meal Dinner Percent of Meal Consumed 75% Feeding Ability Assist with Tray Set Up # Voids 1 1 Exam: General: Alert, Awake, No acute Distress HEENT: EOMI, CV: RRR, No murmurs Pulm: Clear b/l, no wheezing/rhonchi/rales Abd: soft, nontender, +BS x4 Ext: no clubbing/cyanosis/edema Neuro: Alert, no focal deficits, moves all extremities Skin: warm/dry Medical - PN: Obj Da - Labs CBC & Chem 7: 08/14/18 06:51 10/17/17 12:50 Labs: Abnormal Lab Results 10/17/17 10/17/17 13:06 12:50 RBC 5.21 H Hgb 15.3 H Urine Ketones 5/tr A Amorphous Crystals Few A Meds: Medications Bisacodyl (Dulcolax) [address] Q2-3DAYS PRN PRN Reason: Constipation Bisacodyl (Dulcolax) [address] Q2-3DAYS PRN PRN Reason: Constipation Bisoprolol Fumarate (Zebeta) 10 mg PO DAILY [facility] Last Admin: 10/18/17 08:42 Dose: 10 mg Docusate Sodium (Colace) 100 mg PO BID [facility] Last Admin: 10/19/17 07:59 Dose: Not Given Docusate Sodium (Colace) 100 mg PO BID [facility] Last Admin: 10/18/17 20:48 Dose: Not Given Enoxaparin Sodium (Lovenox) 40 mg SQ DAILY [facility] Last Admin: 10/18/17 08:41 Dose: 40 mg Hydrochlorothiazide (Oretic) 6.25 mg PO DAILY [facility] Last Admin: 10/18/17 08:41 Dose: 6.25 mg Acetaminophen (Ofirmev) 1,000 mg in 100 mls @ 200 mls/hr IV Q8 [facility] Last Infusion: 10/19/17 06:25 Dose: Infused Levothyroxine Sodium (Synthroid) 25 mcg PO ACB [facility] Last Admin: 10/19/17 06:36 Dose: 25 mcg Magnesium Hydroxide (Milk Of Magnesia) 30 ml PO BIDP PRN PRN Reason: Constipation Morphine Sulfate (Morphine) 0 mg IV Q1HP PRN PRN Reason: PAIN LEVEL > 6 Last Admin: 10/18/17 13:22 Dose: 2 mg Omeprazole (Prilosec) 20 mg PO ACB [facility] Last Admin: 10/19/17 06:36 Dose: 20 mg Ondansetron HCl (Zofran) 4 mg IV Q6HP PRN PRN Reason: Nausea And Vomiting Last Admin: 10/17/17 23:35 Dose: 4 mg Ondansetron HCl (Zofran) 4 mg IV Q4HP PRN PRN Reason: Nausea And Vomiting Last Admin: 10/18/17 13:22 Dose: 4 mg Oxycodone HCl (Roxicodone) 5 - 10 mg PO Q4-6HP PRN PRN Reason: Pain Last Admin: 10/19/17 06:36 Dose: 5 mg Polyethylene Glycol (Miralax) 17 gm PO DAILYP PRN PRN Reason: Constipation Senna (Senokot) 2 tab PO HS [facility] Last Admin: 10/18/17 20:47 Dose: 2 tab Sodium Biphosphate/Sodium Phosphate (Fleets Adult) [address] Q3-4DAYS PRN PRN Reason: Constipation Sodium Chloride (Saline Flush) 10 ml IV Q8 [facility] Last Admin: 10/19/17 05:55 Dose: 10 ml Throat Lozenges (Cepacol) 1 lozenge PO PRN PRN PRN Reason: Sore Throat Last Admin: 10/18/17 01:05 Dose: 1 lozenge Medical - PN: A/P - Time Spent With Patient Total time spent is greater than 50% in coordination of care (as documented) at patient's floor/unit and/or counseling patient: - Narrative A/P Narrative: A: *Left hip Fx: s/p ORIF (10/17) *HTN *Hypothyroid P: -Ortho following -pain control -IS -pt/ot, CM for placement -ppx: scd, post-op per ortho lovenox / home ppi d/c planning
[2017-10-19] MEDS: ENOXAPARIN 40 MG/0.4 ML SYRINGE SQ SCH (08:22)
--- NOTE | 2017-10-19 11:07 | Orthopedic Progress Note ---
Subjective Patient information: Note initiated : 10/19/17 at 11:04 am Service Date, if different from initiated Date: [] Patient: Libertad Varela 72 y/o F admitted on 10/17/17 for Left Hip Pain/Left Hip Fracture. Chief Complaint: [] Principal diagnosis: Left hip fracture Interval history: POD 2 s/p R hip dexter arthroplasty for displaced femoral neck fracture. Doing well and the intense pain has resolved. She has been ambulating and is set on going home rather than a rehab facility. No new issues. Objective Vital signs: Vital Signs Temp Pulse Resp BP BP Pulse Ox 10/19/17 08:00 98.9 F 70 16 96/55 92 10/19/17 03:50 98.0 F 73 20 115/69 95 10/19/17 00:00 98.1 F 74 20 92/48 94 10/18/17 20:00 98.5 F 77 24 H 115/71 94 10/18/17 16:00 98.9 F 18 96/58 96 10/18/17 12:14 96.7 F L 16 119/78 95 Intake and Output 10/18/17 10/19/17 10/19/17 21:59 05:59 13:59 Intake Total 300 / 300 700 / 700 340 / 340 Output Total 150 / 150 100 / 100 480 / 480 Balance 150 / 150 600 / 600 -140 / -140 Intake: IV 100 / 100 100 / 100 100 / 100 Oral 200 / 200 600 / 600 240 / 240 Output: Void Amount 150 / 150 100 / 100 480 / 480 Other: Meal Dinner Breakfast Percent of Meal Consumed 75% 100% Feeding Ability Assist with Tray Set Up # Voids 1 1 1 Weight 167 lb 4.8 oz Intake & Output: Intake & Output 10/18/17 10/19/17 10/19/17 21:59 05:59 13:59 Intake Total 300 / 300 700 / 700 340 / 340 Output Total 150 / 150 100 / 100 480 / 480 Balance 150 / 150 600 / 600 -140 / -140 Weight 167 lb 4.8 oz Intake: IV 100 / 100 100 / 100 100 / 100 Oral 200 / 200 600 / 600 240 / 240 Output: Void Amount 150 / 150 100 / 100 480 / 480 Other: Meal Dinner Breakfast Percent of Meal Consumed 75% 100% Feeding Ability Assist with Tray Set Up # Voids 1 1 1 Incision: Yes clean and dry Incision clean and dry: Yes Weight bearing status: full Neurological exam IM: Yes neurovascular intact - Labs CBC & BMP: 10/18/17 06:51 10/17/17 12:50 Labs: Orthopedic Labs 10/17/17 12:50 PT 12.2 INR 0.9 10/18/17 10/17/17 06:51 12:50 Hgb 13.3 15.3 H Hct 40.3 46.4 Assessment and Plan (1) Fracture of hip 72 y/o female POD 2 s/p dexter hip arthroplasty for femoral neck fracture. Overall doing well. -Continue oral diet and pain control. -PT/OT for mobilization, weight bearing as tolerated -Posterior hip precautions x6 weeks -Scds/lovenox, ISS. -Dispo: Discussed with her a bit about acute care facility as she lives alone. I think this would be the safest choice at least for a short period of time to allow her to regain her strength, balance and independence with daily activity. Status: Acute
[2017-10-19] MEDS: BISOPROLOL 5 MG TABLET PO SCH (11:34)
[2017-10-19] MEDS: HYDROCHLOROTHIAZIDE 25 MG TABLET PO SCH (11:34)
[2017-10-19] MEDS: SENNOSIDES 1 TABLET PO SCH (20:55)
[2017-10-20] MEDS: ACETAMINOPHEN 1,000 MG/100 ML BOTTLE IV SCH ×2 (05:31→13:35)
[2017-10-20] MEDS: 0.9 % SODIUM CHLORIDE 10 ML SYRINGE IV SCH ×2 (05:32→13:36)
--- NOTE | 2017-10-20 07:16 | Discharge Summary ---
Providers - Providers Patient information: Note initiated : 10/20/17 at 7:14 am Service Date, if different from initiated Date: [] Patient: Libertad Varela 72 y/o F admitted on 10/17/17 for Left Hip Pain/Left Hip Fracture. Chief Complaint: [] Discharge date: 10/20/17 Wound Care Orthopeadic Surgery Hospitalization Hospital course: 72-year-old femalewas admitted on 17 October 2017 for a left femoral neck fracture. She was admitted by the medicine service with orthopeadic consultation. She underwent operative treatment to include a left hip hemiarthroplasty for the noted fracture. She is admitted back to the floor postoperatively where she did well. She work physical therapy ambulated on her own greater than 100 feet. She is able to void spontaneously. She was hemodynamically stable. She was able to tolerate an oral diet. on oral medications. She was placed on Lovenox for prophylactically for DVTs. however due to residing by herself and somewhat unsteady on her feet recognition is for a rehabilitation at least for a short period of time. Patient agreed with this plan. Discharge diagnosis: Left hip fracture Reason for admission: Left Hip Fracture Exam - Exam Incision healing: Yes Incision draining: No Incision red: No Incision swollen: Yes (minimal as expected.) Incision inflamed: No Clean and dry: Yes Weight bearing status: full Range of motion: Posterior hip precautions- no adduction across midline, no hip flexion IR Ortho Discharge Plan - General - Patient Instructions Diet: Regular Diet Activity: activity as tolerated, weight bearing as tolerated Dressing Care: Aquacel Ag - leave on for 5 days Patient Education: Total Hip Replacement (DC), Hip Fracture (ED) Additional Instructions: Discharge Instructions: Do the exercises at home that physical therapy gave you. Weight bearing as tolerated. Wear comfortable clothing for physical therapy. You have the Aquacel Ag dressing, leave in place for 5 days then remove. If dressing becomes soiled (turns black), remove and use gauze 4x4 dressing and silvasorb ointment and change daily. Keep incision clean and dry. When the Aquacel dressing comes off then cover the incision site with a dry dressing (4X4 ) and change daily until seen in the physicians office. You may start showering on post op day #2. To avoid constipation while taking any narcotic pain medication, take an over the counter stool softener/laxative. Use ice packs as directed, on for 20 minutes at a time throughout the day. This and elevation will help with pain and swelling. See enclosed medication list. Call your physician for fevers above 100.5 or pain not controlled by medication. - Problem Maintenance (1) Fracture of hip Status: Acute Qualifiers: Fracture type: closed Laterality: left Fracture healing: with routine healing - Follow Up Plan Follow Up Appointments: Kinjal Sheldon MD [Physician] - 10/31/17 10:40 am (2017) Reji Gale MD [Primary Care Provider] - (Please make follow up with Primary care over next several weeks. ) Disposition: [facility] Swing Bed Prognosis: Good Rehab Potential: Good I certify that the patient requires SNF services: Yes Overall status at discharge: patient is not back to baseline - Orders For Discharge Prescriptions: Acetaminophen [Tylenol] 325 mg PO Q4-6HP PRN #60 tablet PRN Reason: Pain Enoxaparin [Lovenox] 40 mg SQ DAILY #32 syringe oxyCODONE HCL [Roxicodone] 5 - 10 mg PO Q4-6HP PRN #45 tab PRN Reason: Pain Additional Discharge Orders: OT Discharge Order Location: None Selected Physical Therapy at Discharge - General Location: None Selected Pending Studies Resuscitation Status Full Code Diet Regular Diet Start TueOct 18 0649 Bisoprolol Fumarate (Zebeta) 10 mg PO DAILY [facility] Last Admin: 10/19/17 11:34 Dose: Admin: 10/18/17 08:42 Dose: 10 mg Docusate Sodium (Colace) 100 mg PO BID [facility] Last Admin: 10/19/17 20:55 Dose: 100 mg Admin: 10/19/17 08:23 Dose: 100 mg Admin: 10/18/17 20:48 Dose: Not Given Admin: 10/18/17 08:41 Dose: Not Given Admin: 10/17/17 22:20 Dose: Not Given Enoxaparin Sodium (Lovenox) 40 mg SQ DAILY [facility] Last Admin: 10/19/17 08:22 Dose: 40 mg Admin: 10/18/17 08:41 Dose: 40 mg Hydrochlorothiazide (Oretic) 6.25 mg PO DAILY [facility] Last Admin: 10/19/17 11:34 Dose: Admin: 10/18/17 08:41 Dose: 6.25 mg Acetaminophen (Ofirmev) 1,000 mg in 100 mls @ 200 mls/hr IV Q8 [facility] Last Admin: 10/20/17 05:31 Dose: 200 mls/hr Infusion: 10/19/17 21:35 Dose: 0 mls/hr Admin: 10/19/17 20:56 Dose: 200 mls/hr Infusion: 10/19/17 14:52 Dose: 200 mls/hr Admin: 10/19/17 14:22 Dose: 200 mls/hr Infusion: 10/19/17 06:25 Dose: 0 mls/hr Admin: 10/19/17 05:55 Dose: 200 mls/hr Infusion: 10/18/17 22:50 Dose: 0 mls/hr Admin: 10/18/17 22:19 Dose: 200 mls/hr Infusion: 10/18/17 15:00 Dose: 0 mls/hr Admin: 10/18/17 14:10 Dose: 200 mls/hr Admin: 10/18/17 05:44 Dose: Infusion: 10/18/17 03:19 Dose: 200 mls/hr Admin: 10/18/17 02:49 Dose: 200 mls/hr Levothyroxine Sodium (Synthroid) 25 mcg PO ACB [facility] Last Admin: 10/19/17 06:36 Dose: 25 mcg Admin: 10/18/17 07:00 Dose: 25 mcg Morphine Sulfate (Morphine) 0 mg IV Q1HP PRN PRN Reason: PAIN LEVEL > 6 Last Admin: 10/18/17 13:22 Dose: 2 mg Admin: 10/18/17 09:00 Dose: 2 mg Admin: 10/18/17 00:51 Dose: 2 mg Omeprazole (Prilosec) 20 mg PO ACB [facility] Last Admin: 10/19/17 06:36 Dose: 20 mg Admin: 10/18/17 07:00 Dose: 20 mg Ondansetron HCl (Zofran) 4 mg IV Q6HP PRN PRN Reason: Nausea And Vomiting Last Admin: 10/17/17 23:35 Dose: 4 mg Ondansetron HCl (Zofran) 4 mg IV Q4HP PRN PRN Reason: Nausea And Vomiting Last Admin: 10/18/17 13:22 Dose: 4 mg Oxycodone HCl (Roxicodone) 5 - 10 mg PO Q4-6HP PRN PRN Reason: Pain Last Admin: 10/19/17 20:55 Dose: 10 mg Admin: 10/19/17 14:35 Dose: 5 mg Admin: 10/19/17 10:24 Dose: 5 mg Admin: 10/19/17 06:36 Dose: 5 mg Admin: 10/19/17 02:18 Dose: 5 mg Admin: 10/18/17 21:40 Dose: 5 mg Admin: 10/18/17 19:36 Dose: 5 mg Admin: 10/18/17 15:48 Dose: 10 mg Admin: 10/18/17 10:42 Dose: 10 mg Admin: 10/18/17 07:00 Dose: 5 mg Senna (Senokot) 2 tab PO HS [facility]ATHA Last Admin: 10/19/17 20:55 Dose: 2 tab Admin: 10/18/17 20:47 Dose: 2 tab Admin: 10/17/17 22:20 Dose: Not Given Sodium Chloride (Saline Flush) 10 ml IV Q8 LEATHA Last Admin: 10/20/17 05:32 Dose: 10 ml Admin: 10/19/17 21:07 Dose: 10 ml Admin: 10/19/17 14:23 Dose: 10 ml Admin: 10/19/17 05:55 Dose: 10 ml Admin: 10/18/17 22:19 Dose: 10 ml Admin: 10/18/17 15:27 Dose: Not Given Admin: 10/18/17 05:45 Dose: Admin: 10/17/17 23:37 Dose: Not Given Throat Lozenges (Cepacol) 1 lozenge PO PRN PRN PRN Reason: Sore Throat Last Admin: 10/18/17 01:05 Dose: 1 lozenge Shift Summary 10/20/17 05:11 Shift Summary by Juana Harvey VSChinyere. A&Ox4. Medicated for pain with 10mg PO Roxicodone at approx. 2100 with effective results. Dressing to left wrist C/D/I. Dressing to left hip C/D/I. Up with 1 assist and FWW. IV to RFA running IV Ofirmev. Uses call light as needed for assistance. Initialized on 10/20/17 05:11 - END OF NOTE
[2017-10-20] MEDS: OMEPRAZOLE 20 MG CAPSULE PO SCH (07:45)
[2017-10-20] MEDS: LEVOTHYROXINE 25 MCG TABLET PO SCH (07:45)
[2017-10-20] MEDS: HYDROCHLOROTHIAZIDE 25 MG TABLET PO SCH (09:32)
[2017-10-20] MEDS: DOCUSATE SODIUM 100 MG CAPSULE PO SCH (09:32)
[2017-10-20] MEDS: BISOPROLOL 5 MG TABLET PO SCH (09:32)
[2017-10-20] MEDS: ENOXAPARIN 40 MG/0.4 ML SYRINGE SQ SCH (09:33)
[2017-10-20] MEDS ORDERED: PNEUMOCOCCAL 23-VAL P-SAC VAC 0.5 ML VIAL IM ONE (11:45)
== END 2017-10-20 17:35 | disposition other institution (70) | DRG 470 ==
LOC: ED 12:19 → MEDSUR 15:23
PROVIDERS: ADMIT Internal Medicine; ATTEND Orthopaedic Surgery
PROC: HEMIHIP (2017-10-17 16:30)